=== PATIENT | female | born 1950 | race Caucasian/White ===

== ENCOUNTER → 2016-12-27 | Outpatient (CLI) | payer OTHER | LOC: FIMAGING 14:46 | PROVIDERS: ATTEND Internal Medicine | DX: Z12.31 Encounter for screening mammogram for malignant neoplasm of breast (principal) | CPT/HCPCS: G0202 ==

== ENCOUNTER → 2017-05-05 | Outpatient (CLI) | payer OTHER | LOC: BMCIMAGING 15:55 → EDSTATUS 15:57 → BMCIMAGING 15:58 | PROVIDERS: ATTEND Internal Medicine | DX: J98.4 Other disorders of lung (principal) ==

== ENCOUNTER → 2017-05-17 | Outpatient (CLI) | payer OTHER | LOC: BMCIMAGING 15:46 | PROVIDERS: ATTEND Internal Medicine | DX: R09.81 Nasal congestion (principal); R05 Cough; J01.00 Acute maxillary sinusitis, unspecified ==

== ENCOUNTER → 2017-06-20 | Outpatient (CLI) | payer OTHER, MEDICARE | LOC: BMCIMAGING 15:01 | PROVIDERS: ATTEND Obstetrics & Gynecology | DX: D25.9 Leiomyoma of uterus, unspecified (principal) ==

== ENCOUNTER → 2018-01-04 | Outpatient (CLI) | payer OTHER, MEDICARE | LOC: FIMAGING 15:45 | PROVIDERS: ATTEND Internal Medicine | DX: Z12.31 Encounter for screening mammogram for malignant neoplasm of breast (principal) ==

== ENCOUNTER → 2018-03-09 | Outpatient (CLI) | payer OTHER, MEDICARE | LOC: BHFA 11:30 | PROVIDERS: ATTEND Internal Medicine Cardiovascular Disease | DX: R01.1 Cardiac murmur, unspecified (principal) ==

== ENCOUNTER → 2018-03-20 | Outpatient (CLI) | payer OTHER, MEDICARE | LOC: BHFA 13:30 | PROVIDERS: ATTEND Internal Medicine Cardiovascular Disease | DX: R94.31 Abnormal electrocardiogram [ECG] [EKG] (principal); R07.9 Chest pain, unspecified; R06.02 Shortness of breath | CPT/HCPCS: 78452; 93017; A9500 ==

== ENCOUNTER → 2018-07-28 | Outpatient (CLI) | payer OTHER | LOC: FIMAGING 13:13 | PROVIDERS: ATTEND Internal Medicine | DX: R10.2 Pelvic and perineal pain (principal); D25.9 Leiomyoma of uterus, unspecified ==